=== PATIENT | female | born 1980 | race Caucasian/White ===

== ENCOUNTER 2016-10-21 12:03 | Emergency (ER) | payer SELFPAY ==
[~2016-10-21] VITALS: Ht 162.6 cm; Wt 52.0 kg
[2016-10-21 12:05] VITALS: BP 128/73; PULSE 87; RESP 15; TEMP 97.9; O2SAT 98
[2016-10-21] MEDS ORDERED: SODIUM CHLOR 0.9% 1000 ML INJ 1,000 ML IV SCH (13:22)
--- NOTE | 2016-10-21 13:27 | PD ---
HPI Chief Complaint: GI Complaint Time Seen by Provider: 13:16 Travel History International Travel<30 days: No Contact w/Intl Traveler<30days: No Traveled to known affect area: No History of Present Illness HPI 36-year-old female complains of abdominal pain with nausea vomiting diarrhea. Patient states the abdominal pain started 3 days ago. Patient states the pain cramping pain and sharp pain most severe around epigastric lower abdomen. Patient denies any pain radiation. Patient states the pain on the epigastric area more intermittent and the pain in the lower abdomen more constant. Patient states that she has fever intermittently at home up to 102. Patient status post hysterectomy in the past for menorrhagia. Patient states that she has dysuria for the past few days. Patient states that urine has strong smell. Patient denies any blood or mucus in the stool. Patient also complains of right flank pain. PFSH Past Medical History ?: Not : 3 Para: 3 Miscarriage: 0 : 0 Tubal Ligation: Yes Past Surgical History Gynecologic Surgery: Yes (C SECTION) Hysterectomy: Yes Social History Alcohol Use: No Tobacco Use: Yes (1 PPD) Substance Use: No Allergies-Medications (Allergen,Severity, Reaction): Coded Allergies: Morphine (Verified Allergy, Intermediate, 10/21/16) Penicillin (Verified Allergy, Intermediate, Itching, 09/10/10) Effexor (Verified Allergy, Unknown, hives, 07/02/15) Uncoded Allergies: CILLINS (Allergy, Severe, HIVES,SOB, 10/10/10) Reported Meds & Prescriptions Reported Meds & Active Scripts Active No Active Prescriptions or Reported Medications Review of Systems General / Constitutional: No: Fever Eyes: No: Visual changes HENT: No: Headaches Cardiovascular: No: Chest Pain or Discomfort Respiratory: No: Shortness of Breath Gastrointestinal: Positive: Nausea, Vomiting, Diarrhea, Abdominal Pain Genitourinary: Positive: Dysuria Musculoskeletal: No: Pain Skin: No Rash Neurologic: No: Weakness Psychiatric: No: Depression Endocrine: No: Polydipsia Hematologic/Lymphatic: No: Easy Bruising Physical Exam Narrative GENERAL: Well-nourished, well-developed patient. SKIN: Warm and dry. HEAD: Normocephalic. EYES: No scleral icterus. No injection or drainage. NECK: Supple, trachea midline. No JVD or lymphadenopathy. CARDIOVASCULAR: Regular rate and rhythm without murmurs, gallops, or rubs. RESPIRATORY: Breath sounds equal bilaterally. No accessory muscle use. GASTROINTESTINAL: Abdomen soft, nondistended. Patient has moderate tenderness on palpation epigastric and lower abdomen. No rebound tenderness. No mass. MUSCULOSKELETAL: No cyanosis, or edema. BACK: Nontender without obvious deformity. Patient has right CVA tenderness. Neurologic exam normal. Data Data Last Documented VS Vital Signs Date Time Temp Pulse Resp B/P Pulse Ox O2 Delivery O2 Flow Rate FiO2 10/21/16 13:55 99 Nasal Cannula 2 10/21/16 13:08 18 10/21/16 12:05 97.9 87 128/73 Orders Complete Blood Count With Diff (10/21/16 13:22) Comprehensive Metabolic Panel (10/21/16 13:22) Lipase (10/21/16 13:22) Prothrombin Time / Inr (Pt) (10/21/16 13:22) Act Partial Throm Time (Ptt) (10/21/16 13:22) Urinalysis - C+S If Indicated (10/21/16 13:22) Ct Abd/Pel W Iv Contrast(Rout) (10/21/16 13:22) Iv Access Insert/Monitor (10/21/16 13:22) Ecg Monitoring (10/21/16 13:22) Oximetry (10/21/16 13:22) Ondansetron Inj (Zofran Inj) (10/21/16 13:30) Pantoprazole Inj (Protonix Inj) (10/21/16 13:30) Sodium Chlor 0.9% 1000 Ml Inj (Ns 1000 M (10/21/16 13:22) Iohexol 350 Inj (Omnipaque 350 Inj) (10/21/16 15:32) Labs Laboratory Tests Test 10/21/16 10/21/16 14:01 16:28 White Blood Count 19.6 TH/MM3 Red Blood Count 4.26 MIL/MM3 Hemoglobin 13.1 GM/DL Hematocrit 39.2 % Mean Corpuscular Volume 91.9 FL Mean Corpuscular Hemoglobin 30.8 PG Mean Corpuscular Hemoglobin 33.5 % Concent Red Cell Distribution Width 14.0 % Platelet Count 262 TH/MM3 Mean Platelet Volume 10.1 FL Neutrophils (%) (Auto) 84.9 % Lymphocytes (%) (Auto) 11.4 % Monocytes (%) (Auto) 3.4 % Eosinophils (%) (Auto) 0.1 % Basophils (%) (Auto) 0.2 % Neutrophils # (Auto) 16.6 TH/MM3 Lymphocytes # (Auto) 2.2 TH/MM3 Monocytes # (Auto) 0.7 TH/MM3 Eosinophils # (Auto) 0.0 TH/MM3 Basophils # (Auto) 0.0 TH/MM3 CBC Comment DIFF FINAL Differential Comment Prothrombin Time 10.8 SEC Prothromb Time International 1.0 RATIO Ratio Activated Partial 26.4 SEC Thromboplast Time Sodium Level 140 MEQ/L Potassium Level 3.5 MEQ/L Chloride Level 105 MEQ/L Carbon Dioxide Level 27.8 MEQ/L Anion Gap 7 MEQ/L Blood Urea Nitrogen 13 MG/DL Creatinine 0.81 MG/DL Estimat Glomerular Filtration 80 ML/MIN Rate Random Glucose 124 MG/DL Calcium Level 8.5 MG/DL Total Bilirubin 0.4 MG/DL Aspartate Amino Transf 13 U/L (AST/SGOT) Alanine Aminotransferase 17 U/L (ALT/SGPT) Alkaline Phosphatase 28 U/L Total Protein 7.0 GM/DL Albumin 4.0 GM/DL Lipase 119 U/L Urine Color YELLOW Urine Turbidity CLEAR Urine pH 7.0 Urine Specific [place] GREATER THAN 1.050 Urine Protein 30 mg/dL Urine Glucose (UA) NEG mg/dL Urine Ketones 40 mg/dL Urine Occult Blood NEG Urine Nitrite NEG Urine Bilirubin NEG Urine Urobilinogen LESS THAN 2.0 MG/DL Urine Leukocyte Esterase MOD Urine RBC 5 /hpf Urine WBC 4 /hpf Urine Squamous Epithelial 14 /hpf Cells Urine Mucus FEW /lpf Microscopic Urinalysis Comment CULT NOT INDICATED MDM Medical Decision Making Medical Screen Exam Complete: Yes Emergency Medical Condition: Yes Interpretation(s) 1659 PM. CBC with WBC 19.6. 84 neutrophil. CMP within normal limit. UA is negative. CT scan abdomen pelvis negative acute pathology. Differential Diagnosis Differential diagnosis including gastritis, PUD, pancreatitis, cholecystitis, colitis, UTI, pyelonephritis, nephrolithiasis. Narrative Course 36-year-old female with epigastric and low abdominal pain and nausea vomiting diarrhea. Normal saline solution 1 L IV bolus. Protonix 40 mg IV. Zofran 4 mg IV. Diagnosis Primary Impression: Gastroenteritis Additional Impression: Gastritis Qualified Code: K29.70 - Gastritis without bleeding, unspecified chronicity, unspecified gastritis type Patient Instructions: General Instructions Additional Instructions: Take medications as directed. Follow-up with personal physician. Return if persistent problem or worse. Med/Other Pt SpecificInfo: Prescription(s) given Scripts Ondansetron Odt (Zofran Odt)4 Mg Tab4 Mg SL Q6HR PRN (Nausea/Vomiting) #10 TAB Prov:Ranulfo Escobar MD 10/21/16 Sucralfate (Carafate)1 Gm Tab1 Gm PO QID #120 TAB On empty stomach Prov:Ranulfo Escobar MD 10/21/16 Pantoprazole (Protonix)20 Mg Tab20 Mg PO DAILY #30 TAB Prov:Ranulfo Escobar MD 10/21/16 Disposition: 01 DISCHARGE HOME Condition: Stable Ranulfo Escobar MD Oct 21, 2016 13:27
[2016-10-21] MEDS ORDERED: ONDANSETRON HCL 4 MG/2 ML VIAL IVP ONE (13:30)
[2016-10-21] MEDS ORDERED: PANTOPRAZOLE SODIUM 40 MG VIAL IVP ONE (13:30)
[2016-10-21 13:55] VITALS: O2SAT 99
[2016-10-21 14:10] LABS: AUTOMATED NEUTROPHIL # 16.6 TH/MM3 (1.8-7.7); BASOPHIL % 0.2 % (0.0-2.0); EOSINOPHIL % 0.1 % (0.0-4.0); HEMATOCRIT 39.2 % (35.0-46.0); HEMO FLAGS DIFF FINAL; LYMPH % 11.4 % (9.0-44.0); LYMPHOCYTE # 2.2 TH/MM3 (1.0-4.8); MEAN CELL VOLUME 91.9 FL (80.0-100.0); MEAN CORPUSCULAR HEMOGLOBIN 30.8 PG (27.0-34.0); MEAN CORPUSCULAR HGB CONC 33.5 % (32.0-36.0); MONO % 3.4 % (0.0-8.0); NEUT % 84.9 % (16.0-70.0); PLATELET COUNT 262 TH/MM3 (150-450); RED BLOOD COUNT 4.26 MIL/MM3 (4.00-5.30); WHITE BLOOD COUNT 19.6 TH/MM3 (4.0-11.0)
[2016-10-21 14:19] LABS: APTT (PATIENT) 26.4 SEC (24.3-30.1); PROTHROMBIN TIME - PATIENT 10.8 SEC (9.8-11.6)
[2016-10-21 14:24] LABS: ALT (GPT) 17 U/L (10-53); ANION GAP 7 MEQ/L (5-15); AST (GOT) 13 U/L (15-37); BICARBONATE 27.8 MEQ/L (21.0-32.0); BLOOD UREA NITROGEN 13 MG/DL (7-18); CHLORIDE 105 MEQ/L (98-107); GLOMERULAR FILTRATION RATE 80 ML/MIN (>89); POTASSIUM 3.5 MEQ/L (3.5-5.1); SODIUM (NA) 140 MEQ/L (136-145)
[2016-10-21 14:26] LABS: ALKALINE PHOSPHATASE 28 U/L (45-117); TOTAL BILIRUBIN ADULT 0.4 MG/DL (0.2-1.0)
[2016-10-21] MEDS ORDERED: IOHEXOL 350 MG/ML 10 ML VIAL (for RAD DIAG) IV ONE (15:32)
--- NOTE | 2016-10-21 16:00 | RADRPT ---
EXAM DATE/TIME: 10/21/2016 15:23 [facility] COMPARISON: No previous studies available for comparison. INDICATIONS : Abdomen pain. IV CONTRAST: 100 cc Omnipaque 350 (iohexol) IV ORAL CONTRAST: No oral contrast ingested. RADIATION DOSE: 9.96 CTDIvol (mGy) MEDICAL HISTORY : None SURGICAL HISTORY : Hysterectomy. section. ENCOUNTER: Initial ACUITY: 1 day PAIN SCALE: 5/10 LOCATION: Bilateral lower abdomen. TECHNIQUE: Volumetric scanning of the abdomen and pelvis was performed. Using automated exposure control and ad justment of the mA and/or kV according to patient size, radiation dose was kept as low as reasonably achievable to obtain optimal diagnostic quality images. FINDINGS: The lung bases are clear. Liver, spleen, pancreas, adrenal glands and kidneys are unremarkable. The re is good visualization of the cecum and terminal ileum. There is a normal appearing appendix direc travis towards the midline. There is no adnexal mass. There is no free fluid identified. There are mild degenerative changes present in both SI joints. CONCLUSION: 1. I do not see an etiology for the patient's lower abdominal pain. 2. There is no free fluid present. Francois Clayton MD FACR on October 21, 2016 at 15:50 Board Certified Radiologist. This report was verified electronically.
[2016-10-21 16:47] LABS: BLOOD, URINE NEG (NEG); COMMENT (UR) CULT NOT INDICATED; CULTURE IF INDICATED CULT NOT INDICATED; GLUCOSE,URINE NEG (NEG); KETONE, URINE 40 mg/dL (NEG); MUCUS URINE FEW /lpf (OCC); NITRITE,URINE NEG (NEG); SQUAMOUS EPITHELIAL CELL URINE 14 /hpf (0-5); URINE COLOR YELLOW (YELLW/STRAW)
[2016-10-21] MEDS ORDERED: PANT20 PO (17:08)
[2016-10-21] MEDS ORDERED: CARA1TAB6 PO (17:08)
[2016-10-21] MEDS ORDERED: ZOFR4TAB3 SL (17:08)
== END 2016-10-21 17:17 | disposition home or self-care (01) ==
LOC: NEPA 12:03
DX: K52.9 Noninfective gastroenteritis and colitis, unspecified (principal); K29.70 Gastritis, unspecified, without bleeding
CPT/HCPCS: 74177; 80053; 81001; 83690; 85025; 85610; 85730; 96361; 96374; 96375; 99284; C9113; J2405; J7030; Q9967

== ENCOUNTER 2017-01-31 15:03 | Emergency (ER) | payer MEDICAID ==
[~2017-01-31] VITALS: Ht 162.6 cm; Wt 55.0 kg
[~2017-01-31 15:03] MED LIST: CARA1TAB6 PO; PANT20 PO; ZOFR4TAB3 SL
[2017-01-31 15:05] VITALS: BP 114/55; PULSE 79; RESP 19; TEMP 98.8; O2SAT 95
[2017-01-31] MEDS ORDERED: SODIUM CHLOR 0.9% 1000 ML INJ 1,000 ML IV ONE (15:30)
--- NOTE | 2017-01-31 15:35 | PD ---
HPI Chief Complaint: Chest Pain Time Seen by Provider: 15:26 Travel History International Travel<30 days: No Contact w/Intl Traveler<30days: No Traveled to known affect area: No History of Present Illness HPI 37-year-old female with history of previous hysterectomy, presents to the ER today because she has had a week and a half to 2 weeks history of coughing, now is having chest and upper abdominal discomfort with coughing, coughing up yellow phlegm, fatigue, body aches, and states that she has been having urinary urgency and urinating only small amounts urine and a time. She denies any burning with urination, fevers, vomiting, or other symptoms. She rates her current chest and upper abdominal discomfort as 7 out of 10 worse with coughing. She does not know sick contacts. Modifying Factors: None Associated Signs & Symptoms: Chest pains, coughing, yellow phlegm, body aches, urinary symptoms Risk Factors: None PFSH Past Medical History ?: Not : 3 Para: 3 Miscarriage: 0 : 0 Tubal Ligation: Yes Past Surgical History Gynecologic Surgery: Yes (C SECTION) Hysterectomy: Yes Social History Alcohol Use: No Tobacco Use: Yes (1 PPD) Substance Use: Yes Allergies-Medications (Allergen,Severity, Reaction): Coded Allergies: Morphine (Verified Allergy, Intermediate, 01/31/17) Penicillin (Verified Allergy, Intermediate, Itching, 01/31/17) Effexor (Verified Allergy, Unknown, hives, 01/31/17) Uncoded Allergies: CILLINS (Allergy, Severe, HIVES,SOB, 10/10/10) Reported Meds & Prescriptions Reported Meds & Active Scripts Active No Active Prescriptions or Reported Medications Review of Systems Except as stated in HPI: all other systems reviewed are Neg Physical Exam Narrative GENERAL: Well-developed young white female patient currently not in acute distress. Awake and oriented 3. SKIN: Focused skin assessment warm/dry. HEAD: Atraumatic. Normocephalic. EYES: Pupils equal and round. No scleral icterus. No injection or drainage. ENT: No nasal bleeding or discharge. Mucous membranes pink and moist. NECK: Trachea midline. No JVD. CARDIOVASCULAR: Regular rate and rhythm. No murmur appreciated. RESPIRATORY: No accessory muscle use. Clear to auscultation. Breath sounds equal bilaterally. GASTROINTESTINAL: Abdomen soft, non-tender, nondistended. Hepatic and splenic margins not palpable. MUSCULOSKELETAL: No obvious deformities. No clubbing. No cyanosis. No edema. NEUROLOGICAL: Awake and alert. No obvious cranial nerve deficits. Motor grossly within normal limits. Normal speech. PSYCHIATRIC: Appropriate mood and affect; insight and judgment normal. Data Data Last Documented VS Vital Signs Date Time Temp Pulse Resp B/P Pulse Ox O2 Delivery O2 Flow Rate FiO2 01/31/17:17 76 20 97 Room Air 01/31/17 15:05 98.8 114/55 Orders Electrocardiogram (01/31/17 15:26) Complete Blood Count With Diff (01/31/17 15:26) Comprehensive Metabolic Panel (01/31/17 15:26) Urinalysis - C+S If Indicated (01/31/17 15:26) Chest, Single Ap (01/31/17 15:26) Sodium Chlor 0.9% 1000 Ml Inj (Ns 1000 M (01/31/17 15:30) Influenzae A/B Antigen (01/31/17 15:36) Urine Culture (01/31/17 15:30) Labs Laboratory Tests Test 01/31/17 15:30 White Blood Count 10.4 TH/MM3 Red Blood Count 4.55 MIL/MM3 Hemoglobin 14.2 GM/DL Hematocrit 41.6 % Mean Corpuscular Volume 91.4 FL Mean Corpuscular Hemoglobin 31.2 PG Mean Corpuscular Hemoglobin 34.2 % Concent Red Cell Distribution Width 13.2 % Platelet Count 266 TH/MM3 Mean Platelet Volume 9.9 FL Neutrophils (%) (Auto) 55.6 % Lymphocytes (%) (Auto) 35.2 % Monocytes (%) (Auto) 7.9 % Eosinophils (%) (Auto) 0.9 % Basophils (%) (Auto) 0.4 % Neutrophils # (Auto) 5.8 TH/MM3 Lymphocytes # (Auto) 3.7 TH/MM3 Monocytes # (Auto) 0.8 TH/MM3 Eosinophils # (Auto) 0.1 TH/MM3 Basophils # (Auto) 0.0 TH/MM3 CBC Comment DIFF FINAL Differential Comment Urine Color YELLOW Urine Turbidity HAZY Urine pH 6.0 Urine Specific [place] 1.022 Urine Protein TRACE mg/dL Urine Glucose (UA) NEG mg/dL Urine Ketones NEG mg/dL Urine Occult Blood NEG Urine Nitrite NEG Urine Bilirubin NEG Urine Urobilinogen LESS THAN 2.0 MG/DL Urine Leukocyte Esterase LARGE Urine RBC 5 /hpf Urine WBC 15 /hpf Urine Squamous Epithelial 12 /hpf Cells Urine Bacteria RARE /hpf Urine Mucus FEW /lpf Microscopic Urinalysis Comment CULTURE INDICATED Sodium Level 140 MEQ/L Potassium Level 3.7 MEQ/L Chloride Level 105 MEQ/L Carbon Dioxide Level 29.0 MEQ/L Anion Gap 6 MEQ/L Blood Urea Nitrogen 9 MG/DL Creatinine 0.78 MG/DL Estimat Glomerular Filtration 84 ML/MIN Rate Random Glucose 89 MG/DL Calcium Level 9.1 MG/DL Total Bilirubin 0.5 MG/DL Aspartate Amino Transf 15 U/L (AST/SGOT) Alanine Aminotransferase 18 U/L (ALT/SGPT) Alkaline Phosphatase 22 U/L Total Protein 7.2 GM/DL Albumin 3.9 GM/DL [facility] Medical Decision Making Medical Screen Exam Complete: Yes Emergency Medical Condition: Yes Medical Record Reviewed: Yes Interpretation(s) EKG shows NSR, no ST elevation or depression, and no arrhythmias. No significant T-wave inversions. Laboratory Tests Test 01/31/17 15:30 Urine Turbidity HAZY (CLEAR) Urine Leukocyte Esterase LARGE (NEG) Urine RBC 5 /hpf (0-3) Urine WBC 15 /hpf (0-5) Urine Bacteria RARE /hpf (NONE) Urine Mucus FEW /lpf (OCC) Estimat Glomerular Filtration 84 ML/MIN (>89) Rate Alkaline Phosphatase 22 U/L (45-117) Last 24 hours Impressions Chest X-Ray 01/31/17 1526 Signed Impressions: Service Date/Time: Tuesday, January 31, 2017 15:44 - CONCLUSION: No acute disease. Francois Clayton MD FACR Differential Diagnosis Coughing, chest discomfort, fatigue, urinary symptomsdehydration versus metabolic issues versus ACS versus bronchitis versus pneumonia versus influenza Narrative Course Chest x-ray did not show any signs of acute pulmonary processes. Lab work was unremarkable for significant metabolic issues. EKG did not show any signs of acute ST-T changes or dysrhythmias. I suspect that she may have some underlying bronchitis and lab work indicates UTI. My plan would be to treat her for both and have her follow-up with primary care physician. Return for any worsening symptoms as needed. The plan has been discussed with her and she states understanding. Diagnosis Primary Impression: UTI (urinary tract infection) Additional Impression: Bronchitis Med/Other Pt SpecificInfo: Prescription(s) given Scripts Azithromycin (Zithromax Z-Dariel)250 Mg [id number] Mg PO DIRECTED #1 DSPK Ref 0 500 MG (2 tabs) day 1, then 1 tab days 2-5. Prov:Parvin Espana MD 01/31/17 Benzonatate (Tessalon Perles)100 Mg Hab306 Mg PO TID PRN (COUGH) #15 CAP Ref 0 Prov:Parvin Espana MD 01/31/17 Ibuprofen (Motrin Ib)200 Mg Kvm036 Mg PO Q6H PRN (PAIN SCALE 1 TO 10) #15 TAB Ref 0 Prov:Parvin Espana MD 01/31/17 Disposition: 01 DISCHARGE HOME Condition: Stable Parvin Espana MD Jan 31, 2017 15:35
--- NOTE | 2017-01-31 15:55 | RADRPT ---
EXAM DATE/TIME: 01/31/2017 15:44 [facility] COMPARISON: No previous studies available for comparison. INDICATIONS : Cough, shortness of breath, and left flank pain. MEDICAL HISTORY : Asthma. SURGICAL HISTORY : None. ENCOUNTER: Initial ACUITY: 2 weeks PAIN SCORE: 3/10 LOCATION: chest FINDINGS: A single view of the chest demonstrates the lungs to be symmetrically aerated without evidence of mas s, infiltrate or effusion. The cardiomediastinal contours are unremarkable. Osseous structures are intact. CONCLUSION: No acute disease. Francois Clayton MD FACR on January 31, 2017 at 15:54 Board Certified Radiologist. This report was verified electronically.
[2017-01-31 16:10] LABS: AUTOMATED NEUTROPHIL # 5.8 TH/MM3 (1.8-7.7); BASOPHIL % 0.4 % (0.0-2.0); EOSINOPHIL # 0.1 TH/MM3 (0-0.4); EOSINOPHIL % 0.9 % (0.0-4.0); HEMATOCRIT 41.6 % (35.0-46.0); HEMO FLAGS DIFF FINAL; LYMPH % 35.2 % (9.0-44.0); LYMPHOCYTE # 3.7 TH/MM3 (1.0-4.8); MEAN CELL VOLUME 91.4 FL (80.0-100.0); MEAN CORPUSCULAR HEMOGLOBIN 31.2 PG (27.0-34.0); MEAN CORPUSCULAR HGB CONC 34.2 % (32.0-36.0); MONO % 7.9 % (0.0-8.0); NEUT % 55.6 % (16.0-70.0); PLATELET COUNT 266 TH/MM3 (150-450); RED BLOOD COUNT 4.55 MIL/MM3 (4.00-5.30); RED CELL DISTRIBUTION WIDTH 13.2 % (11.6-17.2); WHITE BLOOD COUNT 10.4 TH/MM3 (4.0-11.0)
[2017-01-31 16:15] LABS: BACTERIA, URINE RARE /hpf; BLOOD, URINE NEG (NEG); COMMENT (UR) CULTURE INDICATED; CULTURE IF INDICATED CULTURE INDICATED; GLUCOSE,URINE NEG (NEG); KETONE, URINE NEG (NEG); MUCUS URINE FEW /lpf (OCC); NITRITE,URINE NEG (NEG); SQUAMOUS EPITHELIAL CELL URINE 12 /hpf (0-5); URINE COLOR YELLOW (YELLW/STRAW)
[2017-01-31 16:24] LABS: ALT (GPT) 18 U/L (10-53); ANION GAP 6 MEQ/L (5-15); AST (GOT) 15 U/L (15-37); BLOOD UREA NITROGEN 9 MG/DL (7-18); CHLORIDE 105 MEQ/L (98-107); GLOMERULAR FILTRATION RATE 84 ML/MIN (>89); POTASSIUM 3.7 MEQ/L (3.5-5.1); SODIUM (NA) 140 MEQ/L (136-145)
[2017-01-31 16:26] LABS: ALKALINE PHOSPHATASE 22 U/L (45-117); TOTAL BILIRUBIN ADULT 0.5 MG/DL (0.2-1.0)
[2017-01-31] MEDS ORDERED: MOTR200T4 PO (16:42)
[2017-01-31] MEDS ORDERED: BENZ100 PO (16:42)
[2017-01-31] MEDS ORDERED: ZITHTAB PO (16:42)
[2017-01-31 17:52] VITALS: BP 125/70
--- NOTE | 2017-02-05 08:21 | EKG ---
Date Performed: 01/31/2017 Time Performed: 16:00:52 PTAGE: 37 years EKG: Sinus rhythm BORDERLINE RIGHT AXIS DEVIATION BORDERLINE ECG INTERPRETATION BASED ON A DEFAULT AGE OF 41 YEARS NO PREVIOUS TRACING DOCTOR: Hiro Begum Interpretating Date/Time 02/05/2017 08:17:37
== END 2017-01-31 17:55 | disposition home or self-care (01) ==
LOC: NEPE 15:03
DX: N39.0 Urinary tract infection, site not specified (principal); J40 Bronchitis, not specified as acute or chronic
CPT/HCPCS: 71010; 80053; 81001; 85025; 87086; 87804; 93005; 99284; J7030

== ENCOUNTER 2017-06-13 13:28 | Emergency (ER) | payer SELFPAY ==
[~2017-06-13] VITALS: Ht 162.6 cm; Wt 55.0 kg
[~2017-06-13 13:28] MED LIST changes: +BENZ100 PO; -CARA1TAB6 PO; +MOTR200T4 PO; -PANT20 PO; +ZITHTAB PO; -ZOFR4TAB3 SL
[2017-06-13 13:30] VITALS: BP 122/80; PULSE 85; RESP 20; TEMP 98.7; O2SAT 97
[2017-06-13] MEDS ORDERED: SODIUM CHLOR 0.9% 1000 ML INJ 1,000 ML IV SCH (13:53)
[2017-06-13] MEDS ORDERED: KETOROLAC TROMETHAMINE 30 MG/ML (IVP) VIAL IV PUSH ONE (14:00)
--- NOTE | 2017-06-13 14:02 | PD ---
HPI Chief Complaint: Numbness/Tingling Time Seen by Provider: 13:59 Travel History International Travel<30 days: No Contact w/Intl Traveler<30days: No Traveled to known affect area: No History of Present Illness HPI Patient was examined in the presence of a female nurse at all times. This is a 37-year-old female who presents for evaluation. She reports that 3 weeks ago she developed some numbness and tingling sensation in her right arm and hand. She reports that over the past 1.5 weeks she has developed sharp shooting pain in her right arm and hand. She has since developed some right-sided neck pain as well as occasional intermittent numbness in her right foot. Symptoms have persisted which prompted evaluation today. She reports that she has never had this problem before. She endorses a history of chronic headaches but denies any acute headache. She denies any blurred vision or orbital pain. She denies chest pain or shortness of breath, nausea or vomiting, abdominal pain, diarrhea or constipation, fevers or chills, recent illness. She denies any history of IV drug abuse. The patient is complaining of a mildly pruritic rash to the right pretibial region during review of systems as well. This has been ongoing for the past few days. She has no other complaints at this time. [facility] Past Medical History Medical History: Denies Significant Hx Diminished Hearing: No ?: Not : 3 Para: 3 Miscarriage: 0 : 0 Tubal Ligation: Yes Past Surgical History Gynecologic Surgery: Yes (C SECTION) Hysterectomy: Yes Social History Alcohol Use: No Tobacco Use: Yes (1 PPD) Substance Use: Yes Allergies-Medications (Allergen,Severity, Reaction): Coded Allergies: morphine (Unverified Allergy, Intermediate, 05/22/17) penicillin G (Unverified Allergy, Intermediate, Itching, 05/22/17) venlafaxine (Unverified Allergy, Unknown, hives, 05/22/17) Uncoded Allergies: CILLINS (Allergy, Severe, HIVES,SOB, 10/10/10) Reported Meds & Prescriptions Reported Meds & Active Scripts Active Zithromax Z-Dariel (Azithromycin) 250 Mg Dspk 250 Mg PO DIRECTED 500 MG (2 tabs) day 1, then 1 tab days 2-5. Tessalon Perles (Benzonatate) 100 Mg Cap 100 Mg PO TID PRN Motrin Ib (Ibuprofen) 200 Mg Tab 600 Mg PO Q6H PRN Review of Systems Except as stated in HPI: all other systems reviewed are Neg Physical Exam Narrative GENERAL: Well-developed well-nourished female in no acute distress ambulatory in the ED. Vital signs evaluated family reassuring. SKIN: Warm and dry. There is a faint papular rash noted to the right pretibial region. There is no vesicle formation, no petechiae, no pustules. HEAD: Atraumatic. Normocephalic. EYES: Pupils equal and round. No scleral icterus. No injection or drainage. ENT: No nasal bleeding or discharge. Mucous membranes pink and moist. NECK: Trachea midline. No JVD. CARDIOVASCULAR: Regular rate and rhythm. No murmur appreciated. RESPIRATORY: No accessory muscle use. Clear to auscultation. Breath sounds equal bilaterally. GASTROINTESTINAL: Abdomen soft, non-tender, nondistended. Hepatic and splenic margins not palpable. MUSCULOSKELETAL: No obvious deformities. The patient has normal [employer] strength, 5 out of 5 muscle strength on flexion and extension, dorsi and plantar flexion, leg flexion and extension. 2+ patellar tendon reflex bilaterally, 1+ Achilles tendon and biceps tendon reflex bilaterally. 2+ dorsalis pedis, posterior tibial pulse and radial pulse bilaterally. NEUROLOGICAL: Awake and alert. No obvious cranial nerve deficits. Motor grossly within normal limits. Normal speech. Sensation is intact in the upper and lower extremities to light touch. PSYCHIATRIC: Appropriate mood and affect; insight and judgment normal. Data Data Last Documented VS Vital Signs Date Time Temp Pulse Resp B/P (MAP) Pulse Ox O2 Delivery O2 Flow Rate FiO2 06/13/17 13:30 98.7 85 20 122/80 (94) 97 Room Air Orders Orders Complete Blood Count With Diff (06/13/17 13:53) Comprehensive Metabolic Panel (06/13/17 13:53) Ct Brain W/O Iv Contrast(Rout) (06/13/17 13:53) Ecg Monitoring (06/13/17 13:53) Iv Access Insert/Monitor (06/13/17 13:53) Ct Cerv Spine W/O Contrast (06/13/17 ) Magnesium (Mg) (06/13/17 13:53) Ketorolac Inj (Toradol Inj) (06/13/17 14:00) Sodium Chlor 0.9% 1000 Ml Inj (Ns 1000 M (06/13/17 13:53) Labs Laboratory Tests Test 06/13/17 14:02 White Blood Count 11.4 TH/MM3 Red Blood Count 4.21 MIL/MM3 Hemoglobin 13.2 GM/DL Hematocrit 39.4 % Mean Corpuscular Volume 93.5 FL Mean Corpuscular Hemoglobin 31.4 PG Mean Corpuscular Hemoglobin Concent 33.5 % Red Cell Distribution Width 13.6 % Platelet Count 222 TH/MM3 Mean Platelet Volume 9.8 FL Neutrophils (%) (Auto) 64.9 % Lymphocytes (%) (Auto) 26.9 % Monocytes (%) (Auto) 7.1 % Eosinophils (%) (Auto) 0.7 % Basophils (%) (Auto) 0.4 % Neutrophils # (Auto) 7.4 TH/MM3 Lymphocytes # (Auto) 3.1 TH/MM3 Monocytes # (Auto) 0.8 TH/MM3 Eosinophils # (Auto) 0.1 TH/MM3 Basophils # (Auto) 0.0 TH/MM3 CBC Comment DIFF FINAL Differential Comment Blood Urea Nitrogen 6 MG/DL Creatinine 0.74 MG/DL Random Glucose 97 MG/DL Total Protein 7.0 GM/DL Albumin 3.8 GM/DL Calcium Level 9.1 MG/DL Magnesium Level 2.0 MG/DL Alkaline Phosphatase 24 U/L Aspartate Amino Transf (AST/SGOT) 11 U/L Alanine Aminotransferase (ALT/SGPT) 14 U/L Total Bilirubin 0.7 MG/DL Sodium Level 139 MEQ/L Potassium Level 3.6 MEQ/L Chloride Level 107 MEQ/L Carbon Dioxide Level 27.8 MEQ/L Anion Gap 4 MEQ/L Estimat Glomerular Filtration Rate 89 ML/MIN [facility] Medical Decision Making Medical Screen Exam Complete: Yes Emergency Medical Condition: Yes Medical Record Reviewed: Yes Interpretation(s) CBC WBC 11.4 otherwise unremarkable CMP is essentially unremarkable CT brain reveals likely tiny arachnoid cyst otherwise unremarkable for acute process CT cervical spine negative Differential Diagnosis Cervical radiculopathy, CVA, plexopathy, MS, electrolyte abnormality Narrative Course 37-year-old female 3 weeks of numbness and tingling in the right arm, developed sharp shooting pains in the right arm for the past 1.5 weeks as well as right- sided neck pain over the past day. She has had occasional numbness in the right foot as well. Physical examination is reassuring with no objective focal neurologic deficit or focal weakness. the plan is for basic lab work, CT imaging of the brain and cervical spine she. She'll be given Toradol and IV fluids. The patient's lab work and imaging studies have been reviewed and found to be reassuring. At this point time the plan will be to have the patient follow up with primary care physician, likely outpatient MRI of the brain and cervical spine would be warranted. She verbalizes agreement with this plan. Diagnosis Primary Impression: Paresthesias Additional Instructions: As discussed, follow-up with primary care physician. MRI imaging of the brain and cervical spine as an outpatient would be reasonable. Return for any emergent medical conditions. Med/Other Pt SpecificInfo: No Change to Meds Disposition: 01 DISCHARGE HOME Condition: Stable Wali Lange Jun 13, 2017 14:02
[2017-06-13 14:27] LABS: AUTOMATED NEUTROPHIL # 7.4 TH/MM3 (1.8-7.7); BASOPHIL % 0.4 % (0.0-2.0); EOSINOPHIL # 0.1 TH/MM3 (0-0.4); EOSINOPHIL % 0.7 % (0.0-4.0); HEMATOCRIT 39.4 % (35.0-46.0); HEMO FLAGS DIFF FINAL; LYMPH % 26.9 % (9.0-44.0); LYMPHOCYTE # 3.1 TH/MM3 (1.0-4.8); MEAN CELL VOLUME 93.5 FL (80.0-100.0); MEAN CORPUSCULAR HEMOGLOBIN 31.4 PG (27.0-34.0); MEAN CORPUSCULAR HGB CONC 33.5 % (32.0-36.0); MONO % 7.1 % (0.0-8.0); NEUT % 64.9 % (16.0-70.0); PLATELET COUNT 222 TH/MM3 (150-450); RED BLOOD COUNT 4.21 MIL/MM3 (4.00-5.30); RED CELL DISTRIBUTION WIDTH 13.6 % (11.6-17.2); WHITE BLOOD COUNT 11.4 TH/MM3 (4.0-11.0)
[2017-06-13 14:44] LABS: ANION GAP 4 MEQ/L (5-15); AST (GOT) 11 U/L (15-37); BICARBONATE 27.8 MEQ/L (21.0-32.0); BLOOD UREA NITROGEN 6 MG/DL (7-18); CHLORIDE 107 MEQ/L (98-107); GLOMERULAR FILTRATION RATE 89 ML/MIN (>89); POTASSIUM 3.6 MEQ/L (3.5-5.1); SODIUM (NA) 139 MEQ/L (136-145)
[2017-06-13 14:48] LABS: ALKALINE PHOSPHATASE 24 U/L (45-117); ALT (GPT) 14 U/L (10-53); TOTAL BILIRUBIN ADULT 0.7 MG/DL (0.2-1.0)
--- NOTE | 2017-06-13 15:18 | RADRPT ---
EXAM DATE/TIME: 06/13/2017 14:46 [facility] COMPARISON: No previous studies available for comparison. INDICATIONS : Bilateral upper extremity numbness for 3 weeks, headache RADIATION DOSE: 34.78 CTDIvol (mGy) MEDICAL HISTORY : None SURGICAL HISTORY : Hysterectomy. ENCOUNTER: Initial ACUITY: 3 weeks PAIN SCALE: 7/10 LOCATION: cranial TECHNIQUE: Multiple contiguous axial images were obtained of the head. Using automated exposure control and adj ustment of the mA and/or kV according to patient size, radiation dose was kept as low as reasonably a chievable to obtain optimal diagnostic quality images. DICOM format image data is available electro nically for review and comparison. FINDINGS: CEREBRUM: The ventricles are normal for age. No evidence of midline shift, mass lesion, hemorrhage or acute in farction. No extra-axial bleed is seen. POSTERIOR FOSSA: The cerebellum and brainstem are intact. The 4th ventricle is midline. The cerebellopontine angle i s unremarkable. A tiny 13 mm CSF collection is noted to the right of midline within the posterior fos sa adjacent to the medial aspect of the right cerebral hemisphere consistent with possible tiny arach noid cyst. EXTRACRANIAL: The visualized portion of the orbits is intact. SKULL: The calvaria is intact. No evidence of skull fracture. CONCLUSION: 1. No acute intracranial abnormality. 2. Tiny 13 mm CSF collection is noted to the right of midline within the posterior fossa adjacent to the medial aspect of the right cerebral hemisphere consistent with possible tiny arachnoid cyst. James Reyes MD on June 13, 2017 at 15:13 Board Certified Radiologist. This report was verified electronically.
--- NOTE | 2017-06-13 16:15 | RADRPT ---
EXAM DATE/TIME: 06/13/2017 14:46 [facility] COMPARISON: No previous studies available for comparison. INDICATIONS : Bilateral upper extremity numbness for 3 weeks RADIATION DOSE: 10.32 CTDIvol (mGy) MEDICAL HISTORY : None SURGICAL HISTORY : None. ENCOUNTER: Initial ACUITY: 3 weeks PAIN SCALE: 7/10 LOCATION: neck TECHNIQUE: Volumetric scanning of the cervical spine was performed. Multiplanar reconstructions in the sagittal, coronal and oblique axial planes were performed. Using automated exposure control and adjustment o f the mA and/or kV according to patient size, radiation dose was kept as low as reasonably achievable to obtain optimal diagnostic quality images. DICOM format image data is available electronically f or review and comparison. FINDINGS: Vertebral height is maintained. There is straightening of the cervical lordosis without evidence of spondylolisthesis. The atlantoaxial articulation is intact. The posterior elements are normal witho ut evidence of locked or perched facets. The spinous processes are intact. C2-C3: No fracture seen. The neural foramina are patent. C3-C4: No fracture seen. The neural foramina are patent. C4-C5: No fracture seen. The neural foramina are patent. C5-C6: No fracture seen. The neural foramina are patent. C6-C7: No fracture seen. The neural foramina are patent. C7-T1: No fracture seen. The neural foramina are patent. CONCLUSION: Negative CT cervical spine other than straightening of the cervical lordosis. Tin Ventura MD on June 13, 2017 at 16:11 Board Certified Radiologist. This report was verified electronically.
== END 2017-06-13 16:49 | disposition home or self-care (01) ==
LOC: NEPD 13:28
DX: R20.2 Paresthesia of skin (principal)
CPT/HCPCS: 70450; 72125; 80053; 83735; 85025; 96374; 99285; J1885; J7030